=== PATIENT | male | born 1970 | race African-American/Black ===

== ENCOUNTER 2018-11-05 06:57 | Emergency (ER) | payer SELFPAY ==
[~2018-11-05] VITALS: Ht 165.1 cm; Wt 68.2 kg
[2018-11-05] MEDS ORDERED: ACET-66 PO (07:11)
[2018-11-05] MEDS ORDERED: KETOROLAC TROMETHAMINE 30 MG/ML VIAL IM ONE (08:00)
[2018-11-05] MEDS ORDERED: HYDROCODONE/ACETAMINOPHEN 5-325 MG TABLET PO ONE (08:00)
[2018-11-05 09:49] VITALS: BP 134/99
== END 2018-11-05 10:18 | disposition home or self-care (01) ==
LOC: EMS 07:00
DX: S16.1XXA Strain of muscle, fascia and tendon at neck level, initial encounter (principal); M48.02 Spinal stenosis, cervical region; I10 Essential (primary) hypertension; V43.62XA Car passenger injured in collision with other type car in traffic accident, initial encounter; Y93.89 Activity, other specified; Y92.89 Other specified places as the place of occurrence of the external cause; Y99.8 Other external cause status
CPT/HCPCS: 72125; 96372; 99284; J1885